=== PATIENT | female | born 1955 | race Caucasian/White ===

== ENCOUNTER 2017-08-29 15:44 | Emergency (ER) | payer MEDICAID ==
[2017-08-29 16:26] LABS: ABSOLUTE EOSINOPHILS # (AUTO) 0.1 10^3/uL (0.0-0.6); ABSOLUTE LYMPHOCYTES (AUTO) 1.8 10^3/uL (0.5-4.7); ABSOLUTE MONOCYTES (AUTO) 0.2 10^3/uL (0.1-1.4); ABSOLUTE NEUT (AUTO) 3.4 10^3/uL (1.7-8.2); BASOPHILS % (AUTO) 0.5 % (0-2); EOSINOPHILS % (AUTO) 2.5 % (0-6); HEMATOCRIT 42.1 % (36.0-47.0); HEMOGLOBIN 14.6 g/dL (12.0-15.5); LYMPHOCYTES % (AUTO) 32.2 % (13-45); MEAN CORPUSCULAR HGB CONC 34.5 g/dL (32.0-36.0); MEAN CORPUSCULAR VOLUME 90 fl (80-97); MONOCYTES % (AUTO) 2.9 % (3-13); PLATELET COUNT 191 10^3/uL (150-450); RED BLOOD COUNT 4.69 10^6/uL (3.72-5.28); SEGMENTED NEUTROPHILS % (AUTO) 61.9 % (42-78); TOTAL CELLS COUNTED % (AUTO) 100 %; WHITE BLOOD COUNT 5.5 10^3/uL (4.0-10.5)
--- NOTE | 2017-08-29 16:26 | PSYCHOLOGICAL NOTE ---
Psych Note - Psych Note Psych Note: Reason for Consult: IVC pt to room 44 in ED via [facility] on IVC papers petitioned by her guardian for auditory hallucinations. pt is a daily drinker. placed in room 44 for direct observation. Impression\plan: Patient is recommended to continue under IVC. Patient's birthday is today and states that she has been drinking vodka. Patient does have a legal guardian with [facility] sr. social media & mobile manager Maria Teresa Paulino at [phone]. Patient is currently placed in a jail Al's family retirement. Patient takes multiple medications to include Depakote. Patient is recommended for a Depakote level check to ensure therapeutic levels. Patient will be evaluated in the morning to determine if patient is still responding to internal stimuli once sober. Dr. Dang was consulted on the care and management of this patient ; attending physician is in agreement with recommendations and disposition.
[2017-08-29 16:39] LABS: APPEARANCE,URINE CLOUDY; BILIRUBIN,URINE NEGATIVE (NEGATIVE); COLOR,URINE YELLOW; GLUCOSE, URINE NEGATIVE (NEGATIVE); KETONES,URINE NEGATIVE (NEGATIVE); LEUKOCYTE ESTERASE,URINE LARGE (NEGATIVE); NITRITE,URINE NEGATIVE (NEGATIVE); PROTEIN,URINE NEGATIVE (NEGATIVE); URINE SPECIFIC GRAVITY 1.008; UROBILINOGEN,URINE NEGATIVE mg/dL (<2.0)
--- NOTE | 2017-08-29 16:42 | ER Document Report ---
ED Psych Disorder / Suicide - General Chief Complaint: Psych Problem Stated Complaint: PSYCH EVAL Time Seen by Provider: 08/29/17 16:27 Notes: Patient was brought in by local police authorities as an involuntary commitment. She reportedly is having auditory hallucinations and is drinking heavily of alcohol. Patient is supposed to be taking Depakote for an unidentified psychiatric disorder. Not sure if patient is actually taking her medications because she does not want to talk to me. Tells me that her painting manager told her not to talk to anyone if he was not present. She will not tell me where he is located so that we can have him join us. However, patient does go ahead and answer my questions. She denies having any pains anywhere. Denies specifically to having chest pains. No difficulty breathing or shortness of breath. No nausea or vomiting. No fevers. No major surgeries. Patient denies any significant past medical history. Specifically, patient denies diabetes, hypertension, or heart disease. Denies smoking. Drinks regularly. Denies any psychiatric disorders. She lives in a local half-way. TRAVEL OUTSIDE OF THE [place] IN LAST 30 DAYS: No - Related Data Allergies/Adverse Reactions: No Known Allergies Allergy (Verified 11/30/13 10:12) Past Medical History - Social History Smoking Status: Unknown if Ever Smoked Chew tobacco use (# tins/day): No Frequency of alcohol use: Heavy Drug Abuse: None Family History: Reviewed & Not Pertinent Patient has suicidal ideation: No Patient has homicidal ideation: No Endocrine Medical History: Reports: Hx Diabetes Mellitus Type 2 Psychiatric Medical History: Reports: Hx Bipolar Disorder, Hx Schizophrenia Past Surgical History: Reports: Hx Tonsillectomy - Immunizations Hx Diphtheria, Pertussis, Tetanus Vaccination: Yes Review of Systems - Review of Systems Notes: REVIEW OF SYSTEMS: Patient is not very cooperative and does not want to answer the questions. CONSTITUTIONAL : Denies fever. EENT: Denies eye, ear, nose or mouth or throat pain or other symptoms. CARDIOVASCULAR: Denies chest pain. RESPIRATORY: Denies cough, chest congestion, or shortness of breath. GASTROINTESTINAL: Denies abdominal pain or nausea, vomiting, or diarrhea. GENITOURINARY: Denies difficulty or painful urinating, urinary frequency, blood in urine. MUSCULOSKELETAL: Denies back or neck pain. Denies joint pain or swelling. SKIN: Denies rash or skin lesions. NEUROLOGICAL: Denies LOC or altered mental status. Denies headache. Denies sensory loss or motor deficits. ALL OTHER SYSTEMS REVIEWED AND NEGATIVE. Physical Exam - Vital signs Vitals: Temp Pulse Resp BP Pulse Ox 98.8 F 77 18 94/53 L 94 08/29/17 16:15 08/29/17 16:15 08/29/17 16:15 08/29/17 16:15 08/29/17 16:15 Interpretation: Hypertensive - Blood pressure 94/53 - Notes Notes: PHYSICAL EXAMINATION: GENERAL: Well-appearing, in no acute distress. Intermittently refuses to answer questions. HEAD: Atraumatic, normocephalic. EYES: Pupils equal round and reactive to light, extraocular movements intact. ENT: oropharynx clear without exudates. Moist mucous membranes. NECK: Normal range of motion, supple. LUNGS: Breath sounds clear and equal bilaterally. HEART: Regular rate and rhythm without murmurs. ABDOMEN: Soft, nontender. No guarding or rebound. No masses. BACK: No tenderness throughout entire back. EXTREMITIES: Normal range of motion without pain. NEUROLOGICAL: Normal speech, normal gait. Normal sensory, motor, and reflex exams. Awake, alert. PSYCH: Uncooperative and difficult to assess. SKIN: Warm, dry, no rashes. Course - Re-evaluation Re-evalutation: 08/29/17 16:45 Patient will have routine labs done as well as a Depakote level. She will be evaluated by [facility]. She is currently under an IVC and will remain under that IVC until tomorrow when she is reassessed. 08/29/17 17:28 EtOH level 211. 08/29/17 19:36 Patient's urinalysis is concerning for possible urinary infection. I have ordered a culture of her urine. I am going to give her 1 g of Rocephin IM tonight and further treatment depending on the culture results. - Vital Signs Vital signs: Temp Pulse Resp BP Pulse Ox 98.8 F 77 18 94/53 L 94 08/29/17 16:15 08/29/17 16:15 08/29/17 16:15 08/29/17 16:15 08/29/17 16:15 - Laboratory Result Diagrams: 08/29/17 16:12 08/29/17 16:12 Laboratory results interpreted by me: 08/29/17 08/29/17 08/29/17 16:12 16:12 16:12 Monocytes % 2.9 L Carbon Dioxide 19 L Est GFR (Non-Af Amer) 58 L Glucose 165 H Urine Blood SMALL H Ur Leukocyte Esterase LARGE H Salicylates < 1.0 L Acetaminophen < 10 L Valproic Acid < 10.0 L Discharge - Discharge Clinical Impression: Alcohol abuse, Hallucinations Condition: Stable Referrals: GLORIA SOUTH MD [Primary Care Provider] - Follow up as needed
[2017-08-29 16:46] LABS: ALANINE AMINOTRANSFERASE 24 U/L (9-52); ALBUMIN 4.8 g/dL (3.5-5.0); ALCOHOL 211 mg/dL (NONE DETECTED); ALKALINE PHOSPHATASE 97 U/L (38-126); ANION GAP 19 (5-19); ASPARTATE AMINO TRANSFERASE 26 U/L (14-36); BILIRUBIN,DIRECT 0.3 mg/dL (0.0-0.4); BILIRUBIN,TOTAL 0.7 mg/dL (0.2-1.3); BLOOD UREA NITROGEN 17 mg/dL (7-20); CALCIUM 9.6 mg/dL (8.4-10.2); CARBON DIOXIDE 19 mmol/L (22-30); CHLORIDE 105 mmol/L (98-107); GLUCOSE 165 mg/dL (75-110); POTASSIUM 4.3 mmol/L (3.6-5.0); SODIUM 143.2 mmol/L (137-145); TOTAL PROTEIN 7.7 g/dL (6.3-8.2)
[2017-08-29 16:48] LABS: URINE AMPHETAMINES SCREEN NEGATIVE; URINE BARBITURATES SCREEN NEGATIVE; URINE BENZODIAZEPINES SCREEN NEGATIVE; URINE COCAINE SCREEN NEGATIVE; URINE MARIJUANA (THC) SCREEN NEGATIVE; URINE METHADONE SCREEN NEGATIVE; URINE PHENCYCLIDINE SCREEN NEGATIVE
[2017-08-29 16:52] LABS: ACETAMINOPHEN < 10 ug/mL (10-30); SALICYLATE < 1.0 mg/dL (2.0-20.0)
--- NOTE | 2017-08-29 18:28 | EKG REPORT ---
SEVERITY:- NORMAL ECG - SINUS RHYTHM : Confirmed by: Reymundo Reilly MD 29-Aug-2017 18:27:02
[2017-08-29] MEDS ORDERED: LIDOCAINE 1% INJ-PF (10 MG/ML) 30 ML SDV INJ ONE (19:37)
[2017-08-29] MEDS ORDERED: CEFTRIAXONE INJ 1000 MG VIAL IM ONE (19:37)
--- NOTE | 2017-08-30 09:50 | ER Document Report ---
Doctor's Note Notes: 08/30/17 09:49 This is a follow-up evaluation: Primary diagnosis-psychosis, schizophrenia, noncompliant with medication Patient is here for the above reason, has been doing well, currently has -no-- complaint. On examination-vitals reviewed in the chart. General exam: Alert oriented 3 not in any acute distress HEENT: Normocephalic atraumatic pupils are equal reactive to light, Lungs-clear breath sounds no rales or wheezing. Cardiovascular system: Normal S1-S2 no murmurs. Gastrointestinal: Normal breath sounds, no organomegaly positive bowel sounds. Genitourinary: Skin: No lesions noted, no rash Psychiatric: psychosis, schizophrenia, noncompliant with medication Plan: Awaiting mental health evaluation and recommendation
[2017-08-30] MEDS ORDERED: BUSPIRONE HCL 10 MG TABLET PO SCH (11:45)
--- NOTE | 2017-08-30 11:51 | PSYCHOLOGICAL NOTE ---
Psych Note - Psych Note Psych Note: Reason for consult: Re-Evaluation however initial assessment with patient, IVC, Noncompliant with medication, drinking daily, history of MH, currently seeing a doctor for MH, Psychosis Contact Permission: Maria Teresa Paulino Guardian from [facility] ([phone])/IVC Petitioner Patient is a 62 year old female who presented to the ED last evening via LE, petitioned for IVC via Guardian from [facility] for history of MH and treatment, currently being seen by provider for MH treatment, noncompliant with medications , drinking daily, and psychosis (hearing voices, talking to people that aren't there). Patient was sitting in a chair watching TV at onset of assessment. She commented "I don't think it's a good idea" when this clinician introduced self and informed there would be lots of questions if she could just answer as best as she could. However she proceeded to answer questions when addressed. She stated she is in the ED because "police came to the place I live and brought me due to court order." She identified she lives in a skilled nursing. She denied SI/ HI. She denied having a diagnosis. She stated one of her providers is Dr. Guzman and she thinks there is another. She denied drinking alcohol yesterday and admitted to drinking 3 days out of a 7 day week with preferred drink being white wine. She acknowledged previous hospitalizations and seemed to endorse what could be fixed delusion (she inherited money and her family says she is incompetent so they can get the check from [employer], Maria Teresa the guardian is in on it since she says patient is incompetent). She stated she needs dentures and new glasses which nobody has gotten in the past 6 months to a year because "they blame me." Patient was alert and oriented to person, place and situation. Mood was euthymic with congruent affect. She was somewhat guarded at first but proceeded to answer questions. She denied SI/HI and these were never presenting concerns. She did not appear to be responding to internal as evidenced by fair eye contact , answering questions when addressed and staying on topic. Thought processes were somewhat tangential but she was easily redirected. Conversational speech was within normal limits for rate, tone and prosody. Intellectual abilities are estimated to be average. Insight, judgment and impulse control were fair given ability to interact and engage in assessment. Attempted to contact Guardian from [facility]. Went straight to voicemail. Left voicemail with call back information. Diagnosis: UTI 305.00 (F10.10) Alcohol Use Disorder, Mild 295.90 (F20.9) Schizophrenia (paranoid type) by History Impression/Plan: Recommendation to maintain IVC in order to start medication regimen and get back to therapeutic levels. She denied SI/HI and there was no observed psychosis other than a guarded demeanor which may stem from her Schizophrenia diagnosis yet be exacerbated by UTI and alcohol. Patient had a Serum Alcohol Level of 211 upon arrival to ED and a UTI both of which may have contributed to the psychosis that was reported. Also she either has not been taking her medication as prescribed or the Depakote 500MG at night is not enough to get in her system given Depakote Level that was less than 10. Plan is to obtain stabilization in ED and not send to a psychiatric inpatient facility. Consulted with Dr. Dang regarding the management and care of patient. ED Physician in agreement with recommendation. Medication recommendations made by the psychiatric medical provider, Dr. Parvez PHIPPS, includes: Change Depakote to 500MG twice a day for mood stabilization Add Buspar 5MG in the morning for anxiety and possible alcohol withdrawal Add Buspar 10MG at night for sleep, anxiety and possible alcohol withdrawal Add Vistaril 50MG every 6 hours as needed for additional alcohol withdrawal
[2017-08-30] MEDS: HYDROXYZINE PAMOATE 50 MG CAPSULE PO SCH ×2 (12:36→18:46)
[2017-08-30] MEDS: DIVALPROEX SODIUM 500 MG TAB.SR.24H PO SCH (18:46)
[2017-08-30] MEDS: BUSPIRONE HCL 10 MG TABLET PO SCH (18:46)
--- NOTE | 2017-08-31 10:16 | ER Document Report ---
Doctor's Note Notes: 08/31/17 10:14 This is a follow-up evaluation: Primary diagnosis-schizophrenia Patient is here for the above reason, has been doing well, currently has -no-- complaint. On examination-vitals reviewed in the chart. General exam: Alert oriented 3 not in any acute distress HEENT: Normocephalic atraumatic pupils are equal reactive to light, Lungs-clear breath sounds no rales or wheezing. Cardiovascular system: Normal S1-S2 no murmurs. Gastrointestinal: Normal breath sounds, no organomegaly positive bowel sounds. Genitourinary: Skin: No lesions noted, no rash Psychiatric: Diagnoses: Uncompliant and schizophrenic Plan: Awaiting mental health decision.
[2017-08-31] MEDS: BUSPIRONE HCL 10 MG TABLET PO SCH ×2 (11:11→17:29)
[2017-08-31] MEDS: DIVALPROEX SODIUM 500 MG TAB.SR.24H PO SCH ×2 (11:11→17:29)
[2017-08-31] MEDS: HYDROXYZINE PAMOATE 50 MG CAPSULE PO SCH ×2 (11:12→17:29)
--- NOTE | 2017-08-31 15:05 | PSYCHOLOGICAL NOTE ---
Psych Note - Psych Note Psych Note: Reason for consult: 2nd Re-evaluation, IVC, Noncompliant with medication, drinking daily, history of MH, currently seeing a doctor for MH, Psychosis Contact Permissions: Maria Teresa Grijalvaan from [facility] ([phone])/JAROCHO PetitionerSona "Ana" residential heavy equipment operator/paver Patient is a 62 year old female in the ED petitioned for IVC via Guardian from [facility] for history of MH and treatment, currently being seen by provider for MH treatment, noncompliant with medications, drinking daily, and psychosis ( hearing voices, talking to people that aren't there). She was held over night again due to medication adjustments and inability to arrange plan of care with guardian since this clinician was unsuccessful with phone contact yesterday. Patient has been calm, cooperative, kept to herself and easily redirected while in the ED. He mental status has not changed from yesterday, she has had a chance to sober up and patient is felt to be at her baseline. Attempted to contact Guardian. Went straight to . There were two 2-725 numbers on the [facility] for after hours. The first one ( ) said was not a working number. Tried calling 3 times. The second one ([phone]) was a call center, Keely answered, said the agency and person I was looking for was closed, and said the process is she takes information, puts it in email and sends to agency. 2 hours later there was still no call back. Contacted Ana from the residential who stated Maria Teresa Paulino/[facility] Shahriar "wanted patient to stay until Friday." She further stated she did not want to make decision without the guardian. She tried calling and texting the guardian without success. Obtained a personal local cell number ([phone], not to be given out) for Maria Teresa Paulino since unable to reach guardian or guardian agency to arrange plan of care. Left . She returned call within 20 minutes and stated she could not take information since she was not on duty and to call the after hours numbers. When informed this clinician had and still no response Maria Teresa contacted her splicing supervisor ([facility] Special[facility] [phone]) who called this clinician back 10-15 minutes after talking with Maria Teresa. She was made aware of patient's current presentation and factors that likely contributed to psychosis (medication not high enough dosage to be therapeutic, UTI, alcohol). She approved patient going back to residential of they would take her back. [facility] agreed to take patient back and provide transportation from ED back to residential. Diagnosis: UTI 305.00 (F10.10) Alcohol Use Disorder, Mild 295.90 (F20.9) Schizophrenia (paranoid type) by History Impression/Plan: Patient is cleared from acute psychiatric services. Recommendation to rescind IVC. She appears to be at baseline, has sobered up and has received antibiotic injection for UTI. New medication regimen started yesterday morning and tolerated well. Pat from residential to provide transportation just after 1999. Trisha from [facility] (guardian) aware and approved return to residential. Consulted with Dr. Dang regarding the management and care of patient. ED Physician in agreement with recommendations. Medication recommendations made by the psychiatric medical provider, Dr. Parvez PHIPPS, includes: Provide scripts for medications administered in the ED Depakote to 500MG twice a day for mood stabilization Buspar 10MG twice a day (orders attending ED Physician put in) for anxiety and possible alcohol withdrawal Vistaril 50MG every 6 hours as needed for additional alcohol withdrawal
[2017-08-31 20:54] VITALS: BP 112/69
== END 2017-08-31 20:39 | disposition home or self-care (01) ==
LOC: ER 15:44
DX: F10.10 Alcohol abuse, uncomplicated (principal); E11.9 Type 2 diabetes mellitus without complications; F29 Unspecified psychosis not due to a substance or known physiological condition; F20.9 Schizophrenia, unspecified; Z91.14 Patient's other noncompliance with medication regimen
CPT/HCPCS: 93005; 99285; 36415; 87086; 80307 ×4; 85025; 80053; 81001; 80164; 93010; J3490 ×6

== ENCOUNTER 2017-10-01 20:40 | Emergency (ER) | payer MEDICAID, OTHER ==
[2017-10-01] MEDS ORDERED: THIAMINE HCL 100 MG, FOLIC ACID 1 MG in NORMAL SALINE 250 ML IV ONE (20:57)
--- NOTE | 2017-10-01 21:13 | ER Document Report ---
ED General - General Stated Complaint: PSYCH EVAL Time Seen by Provider: 10/01/17 20:53 Mode of Arrival: Medic Information source: Patient, Law Enforcement, Emergency Med Personnel Cannot obtain history due to: Intoxicated Notes: 62-year-old female with diabetes, bipolar schizophrenia, alcohol abuse presents via EMS from her current place of residence which is with Sona Lay who is a provider from the patient's retirement. Per the provider patient has been drinking today and began making threats against her social media analyst and the tile burner of [employer]. Provider states that she became agitated and started threatening her. She denies any physical violence. She states that the patient and her get along well. Upon arrival patient denies suicidal and, Michael ideation. She denies auditory and visual hallucinations. She does admit to alcohol use today. She has no physical complaints at this time. TRAVEL OUTSIDE OF THE [place] IN LAST 30 DAYS: No - HPI Onset: Just prior to arrival Onset/Duration: Sudden Quality of pain: No pain Associated symptoms: None Exacerbated by: Denies Relieved by: Denies Similar symptoms previously: Yes Recently seen / treated by doctor: Yes - Related Data Allergies/Adverse Reactions: No Known Allergies Allergy (Verified 11/30/13 10:12) Past Medical History - General Information source: Patient, Emergency Med Personnel, [facility] Records Cannot obtain history due to: Intoxicated - Social History Smoking Status: Never Smoker Frequency of alcohol use: Heavy Drug Abuse: None Lives with: Guardian Family History: Reviewed & Not Pertinent Patient has suicidal ideation: No Patient has homicidal ideation: No Endocrine Medical History: Reports: Hx Diabetes Mellitus Type 2 Renal/ Medical History: Denies: Hx Peritoneal Dialysis Psychiatric Medical History: Reports: Hx Bipolar Disorder, Hx Schizophrenia Past Surgical History: Reports: Hx Tonsillectomy - Immunizations Hx Diphtheria, Pertussis, Tetanus Vaccination: Yes Review of Systems - Review of Systems Notes: REVIEW OF SYSTEMS: CONSTITUTIONAL : Denies fever, chills, or sweats. Denies recent illness. Denies weight loss, recent hospitalizations. EENT: Denies visual changes, eye pain. Denies nasal or sinus congestion or discharge. Denies sore throat, oral lesions, difficulty swallowing. CARDIOVASCULAR: Denies chest pain. Denies palpitations. Denies lower extremity edema. RESPIRATORY: Denies cough, cold, or chest congestion. Denies shortness of breath, wheezing. GASTROINTESTINAL: Denies abdominal pain or distention. Denies nausea, vomiting , or diarrhea. Denies blood in vomitus, stools, or per rectum. Denies black, tarry stools. Denies constipation. GENITOURINARY: Denies difficulty urinating, painful urination, frequency, blood in urine, or vaginal discharge. MUSCULOSKELETAL: Denies back or neck pain or stiffness. Denies joint pain or swelling. SKIN: Denies rash, lesions or sores. HEMATOLOGIC : Denies easy bruising or bleeding. LYMPHATIC: Denies swollen glands. NEUROLOGICAL: Denies confusion or altered mental status. Denies passing out or loss of consciousness. Denies dizziness or lightheadedness. Denies headache. Denies weakness or paralysis. Denies problems difficulty with ambulation, slurred speech. Denies sensory loss, numbness, or tingling. Denies seizures. PSYCHIATRIC: Denies anxiety or stress. Denies depression, suicidal ideation, or homicidal ideation. Denies visual or auditory hallucinations. Physical Exam - Vital signs Vitals: Temp Pulse Resp BP Pulse Ox 97.6 F 65 14 121/62 93 10/01/17 20:57 10/01/17 20:57 10/01/17 20:57 10/01/17 20:57 10/01/17 20:57 - Notes Notes: PHYSICAL EXAMINATION: GENERAL: Well-appearing, well-nourished and in no acute distress. HEAD: Atraumatic, normocephalic. EYES: Pupils equal round and reactive to light, extraocular movements intact, conjunctiva are normal. ENT: Nares patent, oropharynx clear without exudates. Moist mucous membranes. NECK: Normal range of motion, supple without lymphadenopathy LUNGS: Breath sounds clear to auscultation bilaterally and equal. No wheezes rales or rhonchi. HEART: Regular rate and rhythm without murmurs ABDOMEN: Soft, nontender, nondistended abdomen. No guarding, no rebound. No masses appreciated. Female : deferred Musculoskeletal: Normal range of motion, no pitting or edema. No cyanosis. NEUROLOGICAL: Cranial nerves grossly intact. Normal speech, normal gait. Normal sensory, motor exams PSYCH: Normal mood, normal affect. Denies suicidal, homicidal ideation. Denies visual and auditory hallucinations. SKIN: Warm, Dry, normal turgor, no rashes or lesions noted. Course - Re-evaluation Re-evalutation: 10/01/17 23:36 Laboratory 10/01/17 10/01/17 10/01/17 21:35 21:35 21:40 Sodium 145.2 H Potassium 4.1 Chloride 109 H Carbon Dioxide 21 L Anion Gap 15 BUN 15 Creatinine 0.69 Est GFR ( Amer) > 60 Est GFR (Non-Af Amer) > 60 Glucose 103 Calcium 9.0 Lipase 21.4 L Urine Color STRAW Urine Appearance SLIGHTLY-CLOUDY Urine pH 5.0 Ur Specific [place] 1.005 Urine Protein NEGATIVE Urine Glucose (UA) NEGATIVE Urine Ketones NEGATIVE Urine Blood SMALL H Urine Nitrite NEGATIVE Urine Bilirubin NEGATIVE Urine Urobilinogen NEGATIVE Ur Leukocyte Esterase LARGE H Urine WBC (Auto) 11 Urine RBC (Auto) 2 Urine Bacteria (Auto) TRACE Squamous Epi Cells Auto 3 Urine Mucus (Auto) RARE Urine Ascorbic Acid NEGATIVE Salicylates < 1.0 L Urine Opiates Screen NEGATIVE Urine Methadone Screen NEGATIVE Acetaminophen < 10 L Ur Barbiturates Screen NEGATIVE Ur Phencyclidine Scrn NEGATIVE Ur Amphetamines Screen NEGATIVE U Benzodiazepines Scrn NEGATIVE Urine Cocaine Screen NEGATIVE U Marijuana (THC) Screen NEGATIVE Serum Alcohol 240 10/01/17 23:37 62-year-old female with diabetes, bipolar schizophrenia, alcohol abuse presents via EMS from her current place of residence which is with Sona Lay who is a provider from the patient's retirement. Per the provider patient has been drinking today and began making threats against her social media analyst and the tile burner of [employer]. Provider states that she became agitated and started threatening her. She denies any physical violence. She states that the patient and her get along well. Upon arrival patient denies suicidal and, homicidal ideation. She denies auditory and visual hallucinations. She does admit to alcohol use today. She has no physical complaints at this time. Patient was seen by myself upon arrival. Vital signs were reviewed. Patient is afebrile, normotensive and not hypoxic. Patient does not appear toxic or dehydrated. They are in no acute distress. Previous medical records and nursing notes reviewed. Significant findings include an alcohol level of 240, urinalysis can with urinary tract infection. Patient received IV fluids, thiamine, folic acid and Bactrim during her ED course. Patient cleared for psychiatric evaluation once clinically sober. - Vital Signs Vital signs: Temp Pulse Resp BP Pulse Ox 97.6 F 65 14 121/62 93 10/01/17 20:57 10/01/17 20:57 10/01/17 20:57 10/01/17 20:57 10/01/17 20:57 - Laboratory Result Diagrams: 10/01/17 21:40 Laboratory results interpreted by me: 10/01/17 10/01/17 21:35 21:40 Sodium 145.2 H Chloride 109 H Carbon Dioxide 21 L Lipase 21.4 L Urine Blood SMALL H Ur Leukocyte Esterase LARGE H Salicylates < 1.0 L Acetaminophen < 10 L Discharge - Discharge Clinical Impression: Homicidal ideation Alcohol intoxication Qualifiers: Complication of substance-induced condition: uncomplicated Qualified Code(s): F10.920 - Alcohol use, unspecified with intoxication, uncomplicated Urinary tract infection Qualifiers: Urinary tract infection type: site unspecified Hematuria presence: without hematuria Qualified Code(s): N39.0 - Urinary tract infection, site not specified Condition: Good Referrals: GLORIA SOUTH MD [Primary Care Provider] - Follow up as needed
[2017-10-01 21:55] LABS: APPEARANCE,URINE SLIGHTLY-CLOUDY; BILIRUBIN,URINE NEGATIVE (NEGATIVE); COLOR,URINE STRAW; GLUCOSE, URINE NEGATIVE (NEGATIVE); KETONES,URINE NEGATIVE (NEGATIVE); LEUKOCYTE ESTERASE,URINE LARGE (NEGATIVE); NITRITE,URINE NEGATIVE (NEGATIVE); PROTEIN,URINE NEGATIVE (NEGATIVE); URINE SPECIFIC GRAVITY 1.005; UROBILINOGEN,URINE NEGATIVE mg/dL (<2.0)
[2017-10-01 22:08] LABS: ACETAMINOPHEN < 10 ug/mL (10-30); ALCOHOL 240 mg/dL (NONE DETECTED); ANION GAP 15 (5-19); BLOOD UREA NITROGEN 15 mg/dL (7-20); CARBON DIOXIDE 21 mmol/L (22-30); CHLORIDE 109 mmol/L (98-107); GLUCOSE 103 mg/dL (75-110); LIPASE 21.4 U/L (23-300); POTASSIUM 4.1 mmol/L (3.6-5.0); SALICYLATE < 1.0 mg/dL (2.0-20.0); SODIUM 145.2 mmol/L (137-145)
[2017-10-01 22:09] LABS: URINE AMPHETAMINES SCREEN NEGATIVE; URINE BARBITURATES SCREEN NEGATIVE; URINE BENZODIAZEPINES SCREEN NEGATIVE; URINE COCAINE SCREEN NEGATIVE; URINE MARIJUANA (THC) SCREEN NEGATIVE; URINE METHADONE SCREEN NEGATIVE; URINE PHENCYCLIDINE SCREEN NEGATIVE
[2017-10-01] MEDS ORDERED: SULFAMETHOXAZOLE/TRIMETHOPRIM 800-160 MG TABLET PO ONE (23:38)
[2017-10-01 23:57] LABS: ABSOLUTE EOSINOPHILS # (AUTO) 0.2 10^3/uL (0.0-0.6); ABSOLUTE LYMPHOCYTES (AUTO) 2.3 10^3/uL (0.5-4.7); ABSOLUTE MONOCYTES (AUTO) 0.2 10^3/uL (0.1-1.4); ABSOLUTE NEUT (AUTO) 2.2 10^3/uL (1.7-8.2); BASOPHILS % (AUTO) 0.6 % (0-2); EOSINOPHILS % (AUTO) 4.6 % (0-6); HEMATOCRIT 40.9 % (36.0-47.0); HEMOGLOBIN 14.1 g/dL (12.0-15.5); LYMPHOCYTES % (AUTO) 46.5 % (13-45); MEAN CORPUSCULAR HEMOGLOBIN 31.3 pg (27.0-33.4); MEAN CORPUSCULAR HGB CONC 34.4 g/dL (32.0-36.0); MEAN CORPUSCULAR VOLUME 91 fl (80-97); MONOCYTES % (AUTO) 3.9 % (3-13); PLATELET COUNT 167 10^3/uL (150-450); RED CELL DISTRIBUTION WIDTH 14.3 % (11.5-14.0); SEGMENTED NEUTROPHILS % (AUTO) 44.4 % (42-78); TOTAL CELLS COUNTED % (AUTO) 100 %
[2017-10-02] MEDS ORDERED: FOLIC ACID INJ 5 MG/1 ML 10 ML VIAL ONE (01:57)
[2017-10-02] MEDS ORDERED: THIAMINE HCL INJ 200 MG/2 ML VIAL ONE (02:10)
[2017-10-02] MEDS ORDERED: THIAMINE HCL 100 MG, FOLIC ACID 1 MG in NORMAL SALINE 250 ML IV ONE (02:15)
--- NOTE | 2017-10-02 07:50 | EKG REPORT ---
SEVERITY:- NORMAL ECG - SINUS RHYTHM : Confirmed by: Darcy Braun MD 02-Oct-2017 07:49:53
--- NOTE | 2017-10-02 10:09 | ER Document Report ---
Doctor's Note Notes: 10/02/17 10:06 Rounds: Chart reviewed and patient interviewed. Patient has a history of schizophrenia and bipolar disorder and resides in a half-way. Patient is cooperative and answers questions appropriately. Says her memory of what happened yesterday is somewhat blurred because she was drinking alcohol yesterday. Vital signs are all normal. Lab studies show EtOH of 240. All other labs essentially normal except for a possible UTI for which sulfa has been started. Patient appears to be medically stable for transfer or discharge. Paxton Petty MD
[2017-10-02 13:02] VITALS: BP 130/72
== END 2017-10-02 13:02 | disposition home or self-care (01) ==
LOC: ER 20:40
DX: R45.850 Homicidal ideations (principal); F10.920 Alcohol use, unspecified with intoxication, uncomplicated; N39.0 Urinary tract infection, site not specified; E11.9 Type 2 diabetes mellitus without complications; R45.1 Restlessness and agitation; F20.89 Other schizophrenia
CPT/HCPCS: 93005; 36415; 80307 ×4; 83690; 85025; 80048; 81001; 93010; J3490 ×2; J3411; J7050

== ENCOUNTER 2018-02-07 10:12 | Emergency (ER) | payer MEDICAID ==
[2018-02-07 10:52] VITALS: BP 124/68
[2018-02-07 11:40] LABS: ABSOLUTE EOSINOPHILS # (AUTO) 0.1 10^3/uL (0.0-0.6); ABSOLUTE MONOCYTES (AUTO) 0.2 10^3/uL (0.1-1.4); ABSOLUTE NEUT (AUTO) 2.5 10^3/uL (1.7-8.2); BASOPHILS % (AUTO) 0.6 % (0-2); EOSINOPHILS % (AUTO) 2.3 % (0-6); HEMATOCRIT 39.2 % (36.0-47.0); HEMOGLOBIN 13.5 g/dL (12.0-15.5); LYMPHOCYTES % (AUTO) 27.5 % (13-45); MEAN CORPUSCULAR HEMOGLOBIN 31.8 pg (27.0-33.4); MEAN CORPUSCULAR HGB CONC 34.4 g/dL (32.0-36.0); MEAN CORPUSCULAR VOLUME 92 fl (80-97); MONOCYTES % (AUTO) 4.8 % (3-13); PLATELET COUNT 154 10^3/uL (150-450); RED BLOOD COUNT 4.25 10^6/uL (3.72-5.28); RED CELL DISTRIBUTION WIDTH 13.5 % (11.5-14.0); SEGMENTED NEUTROPHILS % (AUTO) 64.8 % (42-78); TOTAL CELLS COUNTED % (AUTO) 100 %; WHITE BLOOD COUNT 3.8 10^3/uL (4.0-10.5)
[2018-02-07 12:03] LABS: ACETAMINOPHEN < 10 ug/mL (10-30); ALANINE AMINOTRANSFERASE 12 U/L (9-52); ALBUMIN 4.3 g/dL (3.5-5.0); ALCOHOL 142 mg/dL (NONE DETECTED); ALKALINE PHOSPHATASE 97 U/L (38-126); ANION GAP 13 (5-19); ASPARTATE AMINO TRANSFERASE 22 U/L (14-36); BILIRUBIN,DIRECT 0.3 mg/dL (0.0-0.4); BILIRUBIN,TOTAL 0.7 mg/dL (0.2-1.3); BLOOD UREA NITROGEN 9 mg/dL (7-20); CALCIUM 9.3 mg/dL (8.4-10.2); CARBON DIOXIDE 26 mmol/L (22-30); CHLORIDE 100 mmol/L (98-107); GLUCOSE 120 mg/dL (75-110); POTASSIUM 3.9 mmol/L (3.6-5.0); SALICYLATE < 1.0 mg/dL (2.0-20.0); SODIUM 139.4 mmol/L (137-145); TOTAL PROTEIN 7.3 g/dL (6.3-8.2)
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
--- NOTE | 2018-02-07 22:04 | EKG REPORT ---
SEVERITY:- NORMAL ECG - SINUS RHYTHM : Confirmed by: Darcy Braun MD 07-Feb-2018 22:03:27
== END 2018-02-07 15:26 | disposition home or self-care (01) ==
LOC: ER 10:12
DX: F03.90 Unspecified dementia, unspecified severity, without behavioral disturbance, psychotic disturbance, mood disturbance, and anxiety (principal); F25.9 Schizoaffective disorder, unspecified; L30.9 Dermatitis, unspecified; F31.9 Bipolar disorder, unspecified; R45.850 Homicidal ideations; S00.81XA Abrasion of other part of head, initial encounter; L08.9 Local infection of the skin and subcutaneous tissue, unspecified; X58.XXXA Exposure to other specified factors, initial encounter; I10 Essential (primary) hypertension; E11.9 Type 2 diabetes mellitus without complications; Z79.899 Other long term (current) drug therapy
CPT/HCPCS: 36415; 80053; 80307; 85025; 93005; 93010; 99285

== ENCOUNTER 2020-01-15 16:01 | Emergency (ER) | payer MEDICAID, OTHER ==
[2020-01-15 16:07] VITALS: BP 149/62
[2020-01-15] MEDS ORDERED: ACETAMINOPHEN 325 MG TABLET PO ONE (16:25)
--- NOTE | 2020-01-15 17:11 | RADIOLOGY REPORT (SQ) ---
EXAM DESCRIPTION: KNEE RIGHT 4 VIEWS IMAGES COMPLETED DATE/TIME: 01/15/2020 4:53 pm REASON FOR STUDY: injury COMPARISON: 05/09/2014 EXAM PARAMETERS: NUMBER OF VIEWS: Four views. TECHNIQUE: AP, lateral and oblique radiographic images acquired of the right knee. LIMITATIONS: None. FINDINGS: MINERALIZATION: Normal. BONES: No acute fracture or dislocation. Old healed comminuted distal femoral fracture with lateral hardware, intact. . JOINTS: No effusion. SOFT TISSUES: No significant soft tissue swelling. No radiopaque foreign body. OTHER: No other significant finding. IMPRESSION: No acute fracture.Old healed comminuted distal femoral fracture with lateral hardware, i ntact. TECHNICAL DOCUMENTATION: JOB ID: [id number] [place]-72 2010 [employer]- All Rights Reserved Reading location - IP/workstation name: [employer]
--- NOTE | 2020-01-15 17:14 | ER Document Report ---
HPI - HPI Patient complains to provider of: right leg injury Time Seen by Provider: 01/15/20 16:21 Pain Level: 5 Context: 64-year-old female presents to the emergency room complaining of right knee pain. States she was out walking in the yard last night when she tripped and fell in a hole twisting her right knee. Previous history of a distal femur fracture. Has not taken any medications for her symptoms. States is able to walk but increases her pain with ambulation. Denies hitting her head. No loss of consciousness. No other complaints. Associated Symptoms: None Exacerbated by: Walking Relieved by: Remaining still Similar symptoms previously: No Recently seen / treated by doctor: No - ROS Systems Reviewed and Negative: Yes All other systems reviewed and negative - CONSTITUTIONAL Constitutional: DENIES: Fever - REPRODUCTIVE Reproductive: DENIES: : - MUSCULOSKELETAL Musculoskeletal: REPORTS: Extremity pain - DERM Skin Color: Normal Skin Problems: None Past Medical History - General Information source: Patient - Social History Smoking Status: Never Smoker Chew tobacco use (# tins/day): No Frequency of alcohol use: Social Drug Abuse: None Family History: Reviewed & Not Pertinent - Past Medical History Cardiac Medical History: Reports: Hx Hypertension Endocrine Medical History: Reports: Hx Diabetes Mellitus Type 2 Renal/ Medical History: Denies: Hx Peritoneal Dialysis Psychiatric Medical History: Reports: Hx Bipolar Disorder, Hx Schizoaffective Disorder, Hx Schizophrenia Past Surgical History: Reports: Hx Tonsillectomy - Immunizations Hx Diphtheria, Pertussis, Tetanus Vaccination: Yes Vertical Provider Document - CONSTITUTIONAL Agree With Documented VS: Yes Exam Limitations: No Limitations General Appearance: Mild Distress - INFECTION CONTROL TRAVEL OUTSIDE OF THE [place] IN LAST 30 DAYS: No - HEENT HEENT: Atraumatic, Normocephalic - NECK Neck: Normal Inspection, Supple - RESPIRATORY Respiratory: Breath Sounds Normal, No Respiratory Distress - CARDIOVASCULAR Cardiovascular: Regular Rate, Regular Rhythm, No Murmur - MUSCULOSKELETAL/EXTREMETIES Musculoskeletal/Extremeties: FROM - Nontender to palpitation of the right knee, distal femur, proximal tibia. Full range of motion without pain on flexion, extension, negative anterior posterior draw, negative Koffi's, negative Nabil's, no ballottement. No obvious deformity noted., Non-Tender - NEURO Level of Consciousness: Awake, Alert, Appropriate Motor/Sensory: No Motor Deficit, No Sensory Deficit - DERM Integumentary: Warm, Dry, No Rash Course - Re-evaluation Re-evalutation: 01/15/20 17:17 Patient is resting comfortably she is ambulatory with a steady gait. Reviewed x-ray results with patient. Counseled to rest, ice, elevate her right leg. Take Tylenol and or Motrin as needed for pain. Outpatient follow-up with primary care physician if not improving in 2 to 3 days. Patient was given strict return to the emergency room guidelines. Return for any new or worsening symptoms. All questions were answered. Patient verbalized understanding and agrees with plan of care. - Vital Signs Vital signs: Temp Pulse Resp BP Pulse Ox 98.4 F 82 16 149/62 H 100 01/15/20 16:07 01/15/20 16:07 01/15/20 16:07 01/15/20 16:07 01/15/20 16:07 - Diagnostic Test Radiology reviewed: Reports reviewed Discharge - Discharge Clinical Impression: Right knee injury Qualifiers: Encounter type: initial encounter Qualified Code(s): S89.91XA - Unspecified injury of right lower leg, initial encounter Right leg injury Qualifiers: Encounter type: initial encounter Qualified Code(s): S89.91XA - Unspecified injury of right lower leg, initial encounter Condition: Stable Disposition: HOME, SELF-CARE Instructions: Leg Pain Nonspecific ([facility]), Sprained Knee ([facility]) Additional Instructions: Rest, ice, 20 minutes 3 times a day. Elevate leg. Tylenol and or Motrin as needed for pain. Outpatient follow-up with your primary care physician if not improving in 2 to 3 days. Return to emergency room for any new or worsening symptoms. Referrals: GLORIA SOUTH MD [Primary Care Provider] - Follow up as needed
== END 2020-01-15 17:29 | disposition home or self-care (01) ==
LOC: ER 16:01
DX: S89.91XA Unspecified injury of right lower leg, initial encounter (principal); M25.561 Pain in right knee; W17.2XXA Fall into hole, initial encounter; Y93.01 Activity, walking, marching and hiking; I10 Essential (primary) hypertension; E11.9 Type 2 diabetes mellitus without complications
CPT/HCPCS: 99283; 73564; J3490